=== PATIENT | male | born 1980 | race Caucasian/White ===

== ENCOUNTER 2018-12-22 09:03 | Emergency (ER) | payer MEDICAID ==
[~2018-12-22] VITALS: Ht 152.4 cm; Wt 76.8 kg
[2018-12-22 09:51] VITALS: BP 113/73; PULSE 68; RESP 16; Ht 152.4 cm; Wt 76.8 kg
[2018-12-22] MEDS ORDERED: KETOROLAC 60 MG INJ IM STA (10:58)
[2018-12-22] MEDS ORDERED: NAPR-985 PO (11:52)
--- NOTE | 2018-12-22 12:50 | ERD ---
ER Documentation Chief Complaint Chief Complaint 1) FLU LIKE SX X3 DAYS; 2) CHRONIC LOWER BACK PAIN HPI 38-year-old male patient with a past medical history of chronic back pain presents the ED with lower back pain. States that this has been intermittently going on for last few years. Patient reports that it feels like an achy type of pain and rates it an 8 out of 10. Denies any heavy lifting or dysuria. Denies any hematuria, nausea, vomiting, abdominal pain, chest pain, shortness of breath. Denies any saddle anesthesia, urine or bowel incontinence. Denies any new injuries or trauma. ROS All systems reviewed and are negative except as per history of present illness. Medications Home Meds Active Scripts Naproxen* (Naprosyn*) 500 Mg Tablet, 500 MG PO BID PRN for PAIN AND/OR INFLAMMATION, #30 TAB Prov:MARY SAEZ PA-C 12/22/18 Allergies Allergies: Coded Allergies: No Known Allergy (Unverified , 12/22/18) PMhx/Soc Medical and Surgical Hx: pt denies Medical Hx, pt denies Surgical Hx Hx Alcohol Use: No Hx Substance Use: No Hx Tobacco Use: No FmHx Family History: No diabetes, No coronary disease Physical Exam Vitals Vital Signs Date Temp Pulse Resp B/P (MAP) Pulse Ox O2 O2 Flow FiO2 Time Delivery Rate 12/22/18 98.1 68 16 113/73 98 09:51 (86) Physical Exam Const: [id number], well-nourished. In no acute distress. Head: Atraumatic, normocephalic Eyes: Normal Conjunctiva without injection. No purulent discharge. ENT: Normal external ear, nose. Moist oropharynx without tonsillar exudates. Non-erythematous pharynx. Uvula midline. No drooling. No trismus. Neck: No cervical midline tenderness. Full range of motion. No meningismus. No cervical lymphadenopathy. No JVD. Resp: Clear to auscultation bilaterally. No wheezing, rhonchi, rales, or crackles. No accessory muscle use. No retractions. Cardio: Regular rate and rhythm. No murmurs, rubs or gallops. Abd: Soft, nontender, non distended. Normal bowel sounds. No palpable masses. No rebound tenderness. No guarding. Negative McBurney's point. Negative psoas sign. Negative obturator sign. Skin: No petechiae or rashes Back: No midline tenderness. No CVA tenderness. Tenderness palpation of the bilateral lumbar muscles. Full range of motion with flexion, extension, rotational movements. Ext: No cyanosis, or edema. Neur: Awake and alert. Normal gait. Normal coordination. Psych: Normal Mood and Affect Results 24 hrs Current Medications Medications Dose Sig/Laura Start Time Status Last (Trade) Ordered Route PRN Stop Time Admin Dose Reason Admin Ketorolac 60 mg ONCE STAT 12/22/18 DC 12/22/18 Tromethamine IM 10:58 12/22/18 11:10 (Toradol) 11:00 Procedures/MDM 38-year-old male patient with past medical history of chronic back pain presents to ED complaining of lower back pain that started 3 days ago. Patient is afebrile and nontoxic-appearing. Patient was given Toradol 60 mg here in the ED with improvement of his pain. Patient is ambulating here in the ED without difficulty. Denies saddle anesthesia, numbness or tingling, urine or bowel incontinence, weakness. Low suspicion for cauda equina syndrome, cord compression, nephrolithiasis, aortic aneurysm, aortic dissection, epidural abscess, spinal hematoma, malignancy, pyelonephritis, or other emergent conditions. Diagnosis: Back pain Discharge medications: Naproxen Follow up with primary care physician in 1-2 days. Instructed patient to return to the ED sooner for any worsening symptoms. Patient's questions were answered. Patient is hemodynamically stable. Patient understood and agreed with discharge plan. Patient discharged stable. Disclaimer: Inadvertent spelling and grammatical errors are likely due to EHR/dictation software use and do not reflect on the overall quality of patient care. Also, please note that the electronic time recorded on this note does not necessarily reflect the actual time of the patient encounter. Departure Diagnosis: Primary Impression: Back pain Back pain location: back pain in unspecified location Chronicity: unspecified Back pain laterality: unspecified Qualified Codes: M54.9 - Dorsalgia, unspecified Condition: Stable Patient Instructions: Back Basics: A Healthy Spine, Back Care Tips, Back Pain (Acute Or Chronic) Referrals: COMMUNITY CLINICS YOU HAVE RECEIVED A MEDICAL SCREENING EXAM AND THE RESULTS INDICATE THAT YOU DO NOT HAVE A CONDITION THAT REQUIRES URGENT TREATMENT IN THE EMERGENCY DEPARTMENT. FURTHER EVALUATION AND TREATMENT OF YOUR CONDITION CAN WAIT UNTIL YOU ARE SEEN IN YOUR DOCTORS OFFICE WITHIN THE NEXT 1-2 DAYS. IT IS YOUR RESPONSIBILITY TO MAKE AN APPOINTMENT FOR FOLOW-UP CARE. IF YOU HAVE A PRIMARY DOCTOR --you should call your primary doctor and schedule an appointment IF YOU DO NOT HAVE A PRIMARY DOCTOR YOU CAN CALL OUR PHYSICIAN REFERRAL HOTLINE AT IF YOU CAN NOT AFFORD TO SEE A PHYSICIAN YOU CAN CHOSE FROM THE FOLLOWING [facility] [address] [facility] [address] [facility] [facility] [address] [facility] [address] [facility] [address] [facility]. [facility] [address] [facility] [facility] YOU HAVE RECEIVED A MEDICAL SCREENING EXAM AND THE RESULTS INDICATE THAT YOU DO NOT HAVE A CONDITION THAT REQUIRES URGENT TREATMENT IN THE EMERGENCY DEPARTMENT. FURTHER EVALUATION AND TREATMENT OF YOUR CONDITION CAN WAIT UNTIL YOU ARE SEEN IN YOUR DOCTORS OFFICE WITHIN THE NEXT 1-2 DAYS. IT IS YOUR RESPONSIBILITY TO MAKE AN APPOINTMENT FOR FOLOW-UP CARE. IF YOU HAVE A PRIMARY DOCTOR --you should call your primary doctor and schedule and appointment IF YOU DO NOT HAVE A PRIMARY DOCTOR YOU CAN CALL OUR PHYSICIAN REFERRAL HOTLINE AT . IF YOU CAN NOT AFFORD TO SEE A PHYSICIAN YOU CAN CHOSE FROM THE FOLLOWING [facility] INSTITUTIONS: [facility] [address] [place] [address] [facility] [address] [place] [address] [facility] [address] [place] [address] [facility] URGENT CARE/SPECIALTIES Additional Instructions: Llame al doctor MAANA y ronit fredis RANDY PARA DENTRO DE 2-3 STUART.Dgale a la secretaria que nosotros le instruimos hacer esta randy.Avise o llame si yepez condicin se empeora antes de la randy. Regresa aqui si peor o no mejor. MARY SAEZ PA-C Dec 22, 2018 12:50
== END 2018-12-22 12:16 | disposition home or self-care (01) ==
LOC: FTE 09:03
DX: M54.5 Low back pain (principal)
CPT/HCPCS: 96372; J1885; Z7502

== ENCOUNTER 2019-01-28 10:19 | Emergency (ER) | payer MEDICAID ==
[~2019-01-28] VITALS: Ht 177.8 cm; Wt 78.9 kg
[~2019-01-28 10:19] MED LIST: NAPR-985 PO
[2019-01-28 10:31] VITALS: BP 131/81; PULSE 60; RESP 18; Ht 177.8 cm; Wt 78.9 kg
[2019-01-28] MEDS ORDERED: D-ME473S2 PO (10:57)
[2019-01-28] MEDS ORDERED: AZIT250T PO (10:57)
[2019-01-28] MEDS ORDERED: IBUP-1542 PO (10:57)
--- NOTE | 2019-01-28 11:04 | ERD ---
ER Documentation Chief Complaint Chief Complaint C/O COUGH, CONGESTION, ST FOR 3 DAYS; NO DROOLING, NO STRIDORS HPI 2-year-old male presents with cough congestion sore throat for last 3 days. May have had chills at home. Also some redness in the left lower eyelid. Denies discharge, visual changes, neck status, rashes, vomiting or abdominal pain. He complains of productive mucus as well. ROS All systems reviewed and are negative except as per history of present illness. Medications Home Meds Active Scripts Azithromycin* (Zithromax*) 250 Mg Tablet, 250 MG PO .ZPACK DIRECTED, #6 TAB TAKE 500 MG (2 TABS) THE FIRST DAY THEN 250 MG (1 TAB) DAYS 2-5 Prov:MEENA CHENG MD 01/28/19 Ibuprofen* (Motrin*) 600 Mg Tab, 600 MG PO Q6, #15 TAB Prov:MEENA CHENG MD 01/28/19 Dextromethorphan Hb-Promethazine Hcl* (Promethazine DM* Syrup) 473 Ml Syrup, 5 ML PO Q6 PRN for COUGH for 5 Days, ML Prov:MEENA CHENG MD 01/28/19 Naproxen* (Naprosyn*) 500 Mg Tablet, 500 MG PO BID PRN for PAIN AND/OR INFLAMMATION, #30 TAB Prov:MARY SAEZ PA-C 12/22/18 Allergies Allergies: Coded Allergies: No Known Allergy (Unverified , 01/28/19) PMhx/Soc Medical and Surgical Hx: pt denies Medical Hx, pt denies Surgical Hx Hx Alcohol Use: No Hx Substance Use: No Hx Tobacco Use: No Smoking Status: Never smoker FmHx Family History: No diabetes, No coronary disease, No other Physical Exam Vitals Vital Signs Date Temp Pulse Resp B/P (MAP) Pulse Ox O2 O2 Flow FiO2 Time Delivery Rate 01/28/19 97.3 60 18 131/81 99 10:31 (98) Physical Exam Const: No acute distress Head: Atraumatic Eyes: Normal Conjunctiva ENT: Normal External Ears, Nose and Mouth. TMs with redness decreased light reflex on the right. Nasal congestion. Left lower lid redness without swelling, orbital swelling. Eyes Mynor and extraocular movements intact. Neck: Full range of motion. No meningismus. Resp: Clear to auscultation bilaterally. rhonchi without rales, wheezing or retractions. Cardio: Regular rate and rhythm, no murmurs Abd: Soft, non tender, non distended. Normal bowel sounds Skin: No petechiae or rashes Back: No midline or flank tenderness Ext: No cyanosis, or edema Neur: Awake and alert Psych: Normal Mood and Affect Procedures/MDM Patient presents with URI symptoms productive cough for last 5 days. Chills at home. Signs of left lower leg redness without signs to suggest orbital cellulitis, visual changes. Patient is otherwise well-appearing. Will treat empirically given worsening productive cough with Zithromax, promethazine, ibuprofen, primary care follow-up and return precautions. Is no signs of hypoxemia, rest or distress, abdominal pain, chest pain, additional concerning signs or symptoms. The patient was stable with no new complaints during the ER course. Clinically, there is no current evidence to suggest meningitis, sepsis, acute abdomen, pneumonia, stroke, acute coronary syndrome, pulmonary embolism, aortic dissection or any other emergent condition appearing to require further evaluation or hospitalization. Patient counseled regarding my diagnostic impression and care plan. Prior to discharge all questions answered. Pt agrees with treatment plan and understands strict return precautions. Pt is instructed to follow up with primary care provider within 24-48 hours. Precautionary instructions provided including instructions to return to the ER if not improving or for any worsening or changing symptoms or concerns. Disclaimer: Inadvertent spelling and grammatical errors are likely due to EHR/dictation software use and do not reflect on the overall quality of patient care. Also, please note that the electronic time recorded on this note does not necessarily reflect the actual time of the patient encounter. Departure Diagnosis: Primary Impression: URI, acute Additional Impression: Sore throat Condition: Stable Patient Instructions: Otitis Media, Abx Tx (Adult) Additional Instructions: Recheck for new or worsening symptoms or primary care doctor. MEENA CHENG MD January 28, 2019 11:04
== END 2019-01-28 11:20 | disposition home or self-care (01) ==
LOC: FTE 10:19
DX: J06.9 Acute upper respiratory infection, unspecified (principal); J02.9 Acute pharyngitis, unspecified
CPT/HCPCS: 99283

== ENCOUNTER 2019-07-14 08:24 | Emergency (ER) | payer MEDICAID ==
[~2019-07-14] VITALS: Ht 165.1 cm; Wt 78.0 kg
[~2019-07-14 08:24] MED LIST changes: +AZIT250T PO; +D-ME473S2 PO; +DOCU-144 PO; +HYDR25SU23 PR; +IBUP-1542 PO
[2019-07-14 08:29] VITALS: BP 126/70; PULSE 72; RESP 20; Ht 165.1 cm; Wt 78.0 kg
== END 2019-07-14 09:07 | disposition home or self-care (01) ==
LOC: FTE 08:24
DX: K64.9 Unspecified hemorrhoids (principal)
CPT/HCPCS: 99284